=== PATIENT | female | born 1950 | race American Indian/Alaskan Native ===

== ENCOUNTER 2022-02-19 06:38 | Emergency (ER) | payer MEDICARE ==
--- NOTE | 2022-02-19 07:04 | Emergency Department Report ---
HPI - General PUI?: No Time Seen by Provider: 02/19/22 06:38 - HPI HPI: 71-year-old female with hx of ESRD on H/D, unknown remainder of PMhx per EMS, BIBEMS for unresponsiveness. Pt unable to provide HPI and family members are not present to provide further information. EMS reports family members called EMS. Upon their arrival, the pt was unrsponsive, had agonal respirations and was "fredi." Igel oral airway was insert by EMS. They placed R EJV periphral IV, and provided the pt with epinephinr 03.mg IVP, and placed the pt on external pacers. External pacing was started with a rate of 60bpm. Upon arrival to the ER, the pt was found to be in Asystole. CPR, per ACLS guidelines, immediately initiated. ED Past Medical Hx - Past Medical History Previous Medical History?: Yes - Surgical History Additional Surgical History: unknown; pt unable to provide HPI; family members not present at the time of the pt's arrival ED Review of Systems ROS: Stated complaint: UNRESPONSIVE Other details as noted in HPI Comment: Unobtainable due to pts medical conditions Other: unable to obtain; pt in asystole arrest upon arrival Physical Exam - Physical Exam General: Gen: Elderly female, lying supine on stretcher, unresponsive,Igel oral airway in place HEENT: NCAT Pupils round; 3mm b/l, unreactive; Igel oral airway in pt's oropharynx; no visible blood; sclerae anicteric Neck: no palpable bony defects, unable to test ROM secondary to pt being unresponsive CVS: no audible cardiac sounds; dialysis port in chest Pulmonary: no spontaneous respirations appreciated Abdomen: Soft nondistended; no palpable masses; hypoactive bowel sounds : external genitialia unremarkable Extremities: No cyanosis no clubbing no edema, no palpable distal pulses Integumentary: skin warm to touch; Neuro: pt is unresponsive, pt not moving; GCS 3 Psych:pt unresponsive ED Medical Decision Making - Medical Decision Making 71-year-old female with history of end-stage renal disease on hemodialysis, unknown other past medical history, brought in by EMS for unresponsiveness and agonal breathing. Upon arrival to the ER patient @ 06:35am, she was found to be in asystole arrest. ACLS protocol emergently initiated for PEA arrest Time of onset of ACLS was 6:35 AM. Patient received right lower extremity IO as performed by emergency department nurse. Patient was continuously bagged via bag valve mask by respiratory therapy. Patient received multiple dosages of epinephrine and subsequently received calcium chloride, bicarbonate, and atropine. Multiple pulse checks were performed per ACLS protocol. Patient had no spontaneous return of circulation. Cardiac motion was evaluated with bedside ultrasound by me. Patient was found to have no spontaneous cardiac motion. Patient remained in asystole cardiac arrest. Time of pronounced at 6:55 AM. Critical care attestation.: If time is entered above; I have spent that time in minutes in the direct care of this critically ill patient, excluding procedure time. ED Disposition Clinical Impression: Cardiac asystole, Unresponsiveness Disposition: 20 Is pt being admited?: No Does the pt Need Aspirin: No Condition: Critical
[2022-02-19] MEDS ORDERED: SODIUM BICARB 8.4% 50 MEQ/50 ML SYRINGE IV ONE (16:05)
[2022-02-19] MEDS ORDERED: CALCIUM CHLORIDE 1,000 MG/10 ML SYRINGE IV ONE (16:05)
[2022-02-19] MEDS ORDERED: ATROPINE 0.1% (1 MG/10 ML) CARDIAC SYRINGE ONE (16:05)
== END 2022-02-19 11:49 ==
LOC: ED 06:38
DX: I46.9 Cardiac arrest, cause unspecified (principal); R40.4 Transient alteration of awareness; Z98.890 Other specified postprocedural states
CPT/HCPCS: 92950; 99285; J0461; J3490